=== PATIENT | female | born 1980 | race Two or more races ===

== ENCOUNTER 2024-01-22 23:06 | Emergency (ER) | payer OTHER ==
[~2024-01-22] VITALS: Ht 160 cm; Wt 95.5 kg
[2024-01-22 23:23] VITALS: BP 133/72; PULSE 94; RESP 18; TEMP 98.6; O2SAT 99
[2024-01-23] MEDS: DiphenhydrAMINE HCL 50 MG CAPSULE PO ONE (00:01)
[2024-01-23] MEDS: DEXAMETHASONE SOD PHOS 4 MG/ML 5 ML VIAL IM ONE (00:01)
== END 2024-01-23 00:21 | disposition home or self-care (01) ==
LOC: EMS 23:06
DX: L50.0 Allergic urticaria (principal); E11.9 Type 2 diabetes mellitus without complications; I10 Essential (primary) hypertension
CPT/HCPCS: 99283; 96372; J1100